=== PATIENT | male | born 1970 | race Asian ===

== ENCOUNTER 2021-05-14 15:52 | Emergency (ER) | payer MEDICAID ==
[~2021-05-14] VITALS: Ht 182.9 cm; Wt 69.4 kg
--- NOTE | 2021-05-14 16:10 | NUR ---
Patient to ER [facility] for evaluation.
[2021-05-14 16:11] VITALS: BP_SYST 118
--- NOTE | 2021-05-14 16:19 | NUR ---
Patient is a [place] speaking male accompanied by family translating. Patient complains of sore throat x 1 month now radiating to head. Reports 2 weeks ago seen by PMD and diagnosed with an infection, rx'd amoxicillin and claritan with no improvement. Mild swelling noted to tonsils.
--- NOTE | 2021-05-14 16:40 | NUR ---
ER at [facility] examining patient.
--- NOTE | 2021-05-14 17:07 | NUR ---
PATIENT MOVED TO BED 8. REPORT GIVEN TO DONNELL VIGIL
--- NOTE | 2021-05-14 17:30 | NUR ---
LAB AT THE BEDSIDE FOR BLOOD DRAW
[2021-05-14] MEDS ORDERED: OMEP20CA15 PO (17:34)
[2021-05-14 17:50] LABS: BASOPHILS % (AUTO) 0.4 % (0.0-2.0); EOSINOPHILS # (AUTO) 0.2 K/uL (0.0-0.4); HEMATOCRIT 41.1 % (36-54); HEMOGLOBIN 13.8 g/dL (14.0-18.0); LYMPHOCYTES # (AUTO) 1.7 K/uL (1.0-5.5); LYMPHOCYTES % (AUTO) 32.4 % (20.5-51.5); MEAN CORPUSCULAR HEMOGLOBIN 31 pg (27-31); MEAN CORPUSCULAR HGB CONC 34 % (32-36); MEAN CORPUSCULAR VOLUME 92 fL (79.0-98.0); MONOCYTES # (AUTO) 0.4 K/uL (0.0-1.0); MONOCYTES % (AUTO) 8.5 % (1.7-9.3); NEUTROPHILS # (AUTO) 2.8 K/uL (1.8-7.7); NEUTROPHILS % (AUTO) 55.7 % (40.0-70.0); PLATELET COUNT (AUTO) 206 K/uL (130-430); RED CELL DISTRIBUTION WIDTH 13.4 % (9.0-15.0); WHITE BLOOD COUNT (AUTO) 5.1 K/uL (4.8-10.8)
[2021-05-14 18:16] LABS: ANION GAP 7 (5-15); CALCIUM 8.8 mg/dL (8.4-11.0); CHLORIDE 105 mmol/L (98-107); CREATININE 0.79 mg/dL (0.55-1.30); GLUCOSE 83 mg/dL (70-99); SODIUM SERUM 139 mmol/L (136-145); UREA NITROGEN, BLOOD 13 mg/dL (8-21)
[2021-05-14 18:23] LABS: ALANINE AMINOTRANSFERASE 36 U/L (12-78); ALBUMIN 3.8 g/dL (3.4-4.8); ASPARTATE AMINOTRANSFERASE 19 U/L (10-37); LIPASE 61 U/L (73-393); TOTAL BILIRUBIN 0.2 mg/dL (0.0-1.0)
[2021-05-14 18:40] LABS: GFR AFRICAN AMERICAN 132 mL/min (>90)
[2021-05-14 18:47] LABS: BILIRUBIN,DIRECT 0.1 mg/dL (0.0-0.3)
--- NOTE | 2021-05-14 18:58 | NUR ---
Patient given written and verbal discharge instructions and verbalizes understanding. ER MD discussed with patient the results and treatment provided. Patient in stable condition. ID arm band removed. Rx of OMEPRAZOLE given. Patient educated on pain management and to follow up with PMD. Pain Scale 0/10. Opportunity for questions provided and answered. Medication side effect fact sheet provided.
[2021-05-14 18:59] VITALS: BP_SYST 118
== END 2021-05-14 18:59 | disposition home or self-care (01) ==
LOC: SED 15:52
DX: J02.9 Acute pharyngitis, unspecified (principal); R04.2 Hemoptysis; Z79.899 Other long term (current) drug therapy
CPT/HCPCS: 36415; 71045; 80048; 80076; 83690; 84484; 85025; 86403; 87081; 93005; 99285